=== PATIENT | female | born 1960 | race Caucasian/White ===

== ENCOUNTER 2017-05-31 12:57 | Emergency (ER) | payer MEDICARE, MEDICAID ==
--- NOTE | 2017-05-31 13:20 | UC ---
Throat Pain/Nasal Tonny HPI - HPI Summary HPI Summary: complaint of nasal congestion and cough for approx 1 month not sure if it is her allergies- recently found some black mold in her closet and in bedroom'approx 1 week ago productive cough with green sputum- cough is worse at night pressure in her face and forehaed taking loratidine and mucinex D denies fever and chills treated for sinusitis approx 1.5 months ago with zithromax - History of Current Complaint Stated Complaint: BILATERAL EYE SINUS COUGH THROAT COMPLAINT Time Seen by Provider: 05/31/17 13:13 Hx Obtained From: Patient - Allergies/Home Medications Allergies/Adverse Reactions: Allergies Allergy/AdvReac Type Severity Reaction Status Date / Time Carbamazepine [From Tegretol] Allergy Hives and Verified 05/31/17 13:27 "Lethargic" Penicillins Allergy Hives Verified 05/31/17 13:27 Home Medications: Home Medications Cholecalciferol TAB* [Vitamin D TAB*] 1,000 unit PO DAILY 05/31/17 [History Confirmed 05/31/17] PMH/Surg Hx/FS Hx/Imm Hx Previously Healthy: Yes - seasonal allergies, RA, lupus Endocrine History: Dyslipidemia Cardiovascular History: Deep Vein Thrombosis - Surgical History Surgical History: Yes Surgery Procedure, Year, and Place: Left Shoulder, 2012, [place]; Total Hysterectomy, 2008, [place]; Sinus, 2003, [facility]; Left Knee Arthroscopy, 2001, [place]; C-Sections, 1977 1984 1985;. Colon Polyps, ~1970 - Family History Known Family History: Negative: Cardiac Disease, Hypertension, Diabetes - Social History Alcohol Use: None Substance Use Type: None Smoking Status (MU): Heavy Every Day Tobacco Smoker Type: Cigarettes Amount Used/How Often: 1/2 PPD Length of Time of Smoking/Using Tobacco: 46 Years Have You Smoked in the Last Year: Yes Cessation Counseling: Patient Advised to Stop Review of Systems Constitutional: Negative Skin: Negative Eyes: Negative ENT: Sinus Congestion, Sinus Pain/Tenderness Respiratory: Cough Cardiovascular: Negative Gastrointestinal: Negative Genitourinary: Negative Motor: Negative Neurovascular: Negative Musculoskeletal: Negative Neurological: Negative Psychological: Negative All Other Systems Reviewed And Are Negative: Yes Physical Exam Triage Information Reviewed: Yes Appearance: No Pain Distress, Well-Nourished Vital Signs Reviewed: Yes Eyes: Positive: Conjunctiva Clear ENT: Positive: Pharynx normal, Nasal congestion, Nasal drainage, TMs normal, Other: - frontal and maxillary sinus tenderness Neck: Positive: No Lymphadenopathy Respiratory: Positive: Lungs clear, Normal breath sounds, No respiratory distress, No accessory muscle use Cardiovascular: Positive: RRR, No Murmur, Pulses Normal Abdomen Description: Positive: Nontender, Soft Bowel Sounds: Positive: Present Musculoskeletal: Positive: No Edema Neurological: Positive: Alert Psychological Exam: Normal Skin Exam: Normal Throat Pain/Nasal Course/Dx - Differential Dx/Diagnosis Differential Diagnosis/HQI/PQRI: Sinusitis Provider Diagnoses: sinusitis Discharge - Discharge Plan Condition: Stable Disposition: HOME Patient Education Materials: Sinusitis (ED) Referrals: Naomi Gonsalez PA [Primary Care Provider] - Additional Instructions: Please start antibiotic as directed Increase fluids and rest Take acetaminophen or ibuprofen for fever or pain Please review your discharge instructions. If your symptoms do not improve please call your primary care provider or return to urgent care. Your blood pressure is pre-hypertensive reading. Please contact your primary care provider within 1 day -4 weeks for further evaluation
[2017-05-31 13:27] VITALS: BP 139/77
== END 2017-05-31 13:45 | disposition home or self-care (01) ==
LOC: UCCORT 12:57
DX: J32.9 Chronic sinusitis, unspecified (principal); E78.5 Hyperlipidemia, unspecified; Z86.718 Personal history of other venous thrombosis and embolism; Z88.0 Allergy status to penicillin; F17.210 Nicotine dependence, cigarettes, uncomplicated
CPT/HCPCS: 99212; G0463

== ENCOUNTER 2017-09-08 14:01 | Emergency (ER) | payer MEDICARE, MEDICAID ==
[2017-09-08 14:11] VITALS: BP 124/77
--- NOTE | 2017-09-08 15:19 | UC ---
Throat Pain/Nasal Tonny HPI - HPI Summary HPI Summary: TWO WEEKS OF SINUS PRESSURE AND FACIAL PAIN, NO FEVER. COUGH PRODUCTIVE AND WORSE AT NIGHT. - History of Current Complaint Chief Complaint: UCRespiratory Stated Complaint: SINUSES Time Seen by Provider: 09/08/17 14:58 Hx Obtained From: Patient, Family/Hydrogen Cell Tender Onset/Duration: Gradual Onset, Lasting Weeks, Still Present Severity: Moderate Cough: Productive Associated Signs & Symptoms: Positive: Hoarseness, Sinus Discomfort, Nasal Discharge - Epiglottits Risk Factors Epiglottis Risk Factors: Negative - Allergies/Home Medications Allergies/Adverse Reactions: Allergies Allergy/AdvReac Type Severity Reaction Status Date / Time Carbamazepine [From Tegretol] Allergy Hives and Verified 09/08/17 14:06 "Lethargic" Penicillins Allergy Hives Verified 09/08/17 14:06 Home Medications: Home Medications Cholecalciferol TAB* [Vitamin D TAB*] 1 tab DAILY 09/08/17 [History Confirmed ] Topiramate [Topiramate ER 200 mg cap] 1 cap BID 09/08/17 [History Confirmed 09/14] PMH/Surg Hx/FS Hx/Imm Hx Previously Healthy: Yes - Surgical History Surgical History: Yes Surgery Procedure, Year, and Place: Left Shoulder, 2012, [place]; Total Hysterectomy, 2008, [place]; Sinus, 2003, [facility]; Left Knee Arthroscopy, 2001, [place]; C-Sections, 1977 1984 1985;. Colon Polyps, ~1970 - Family History Known Family History: Negative: Cardiac Disease, Hypertension, Diabetes, Respiratory Disease - Social History Lives: With Family Alcohol Use: Rare Substance Use Type: None Smoking Status (MU): Heavy Every Day Tobacco Smoker Type: Cigarettes Amount Used/How Often: 1/2-1 PPD Length of Time of Smoking/Using Tobacco: 46 Years Have You Smoked in the Last Year: Yes Cessation Counseling: Patient Advised to Stop - PATIENT IN THE PROCESS OF QUITTING - Immunization History Most Recent Influenza Vaccination: none 2017 Review of Systems Constitutional: Negative Skin: Negative Eyes: Negative ENT: Nasal Discharge, Sinus Congestion, Sinus Pain/Tenderness Respiratory: Cough Cardiovascular: Negative Gastrointestinal: Negative Genitourinary: Negative Motor: Negative Neurovascular: Negative Musculoskeletal: Negative Neurological: Negative Psychological: Negative Is Patient Immunocompromised?: No All Other Systems Reviewed And Are Negative: Yes Physical Exam Triage Information Reviewed: Yes Appearance: No Pain Distress, Well-Nourished, Ill-Appearing Vital Signs: Initial Vital Signs Temp 97.9 F 09/08/17 14:08 Pulse 78 09/08/17 14:08 Resp 16 09/08/17 14:08 BP 124/77 09/08/17 14:08 Pulse Ox 98 09/08/17 14:08 Vital Signs Reviewed: Yes Eye Exam: Normal ENT: Positive: Pharynx normal, Nasal congestion, Nasal drainage, TM bulging, TM dull Dental Exam: Normal Neck exam: Normal Neck: Positive: Supple, Nontender, No Lymphadenopathy Respiratory Exam: Other - COUGH Respiratory: Positive: Chest non-tender, Lungs clear, Normal breath sounds, No respiratory distress, No accessory muscle use Cardiovascular Exam: Normal Cardiovascular: Positive: RRR, No Murmur, Pulses Normal Abdominal Exam: Normal Abdomen Description: Positive: Nontender, No Organomegaly Musculoskeletal Exam: Normal Neurological Exam: Normal Psychological Exam: Normal Skin Exam: Normal Throat Pain/Nasal Course/Dx - Differential Dx/Diagnosis Differential Diagnosis/HQI/PQRI: Pharyngitis, Sinusitis Provider Diagnoses: SINUSITIS Discharge - Discharge Plan Condition: Stable Disposition: HOME Prescriptions: Benzonatate CAP* [Tessalon 100 MG CAP*] 100 mg PO TID PRN #15 cap PRN Reason: Cough DOXYcycline CAP(*) [DOXYcycline 100MG CAP(*)] 100 mg PO BID #20 cap Patient Education Materials: Sinusitis (ED) Referrals: Haydee Noriega PA [Primary Care Provider] -
== END 2017-09-08 15:18 | disposition home or self-care (01) ==
LOC: UCCORT 14:01
DX: J32.9 Chronic sinusitis, unspecified (principal); Z88.0 Allergy status to penicillin; Z88.8 Allergy status to other drugs, medicaments and biological substances; F17.210 Nicotine dependence, cigarettes, uncomplicated
CPT/HCPCS: 99212; G0463

== ENCOUNTER 2017-12-25 18:32 | Emergency (ER) | payer MEDICARE, MEDICAID ==
[2017-12-25 19:04] VITALS: BP 139/77
--- NOTE | 2017-12-25 20:42 | ED ---
Throat Pain/Nasal Congestion - HPI Summary HPI Summary: 57 yr old with two weeks of coughing, post nasal drip and frontal sinus pressure. She has been feeling ill for two weeks. She is a smoker and feels she has a sinus infection. She has no other problems. - History of Current Complaint Chief Complaint: UCRespiratory Time Seen by Provider: 12/25/17 20:31 - Allergies/Home Medications Allergies/Adverse Reactions: Allergies Allergy/AdvReac Type Severity Reaction Status Date / Time carbamazepine [From Tegretol] Allergy See Comment Verified 12/25/17 18:55 Penicillins Allergy Hives Verified 12/25/17 18:55 PMH/Surg Hx/FS Hx/Imm Hx Endocrine/Hematology History: Reports: Hx Diabetes Cardiovascular History: Comment Only: Hx Hypertension - hx of HTN; no longer on meds Respiratory History: Reports: Hx Asthma - Surgical History Surgery Procedure, Year, and Place: Left Shoulder, 2012, [place]; Total Hysterectomy, 2008, [place]; Sinus, 2003, [facility]; Left Knee Arthroscopy, 2001, [place]; C-Sections, 1977 1983 1985;. Colon Polyps, ~1970; Left elbow Infectious Disease History: No Infectious Disease History: Denies: Traveled Outside the in Last 30 Days - Family History Known Family History: Negative: Cardiac Disease, Hypertension, Diabetes, Respiratory Disease - Social History Alcohol Use: Occasionally Substance Use Type: Reports: None Smoking Status (MU): Heavy Every Day Tobacco Smoker Type: Cigarettes Amount Used/How Often: 1/2-1 PPD Length of Time of Smoking/Using Tobacco: 46 Years Have You Smoked in the Last Year: Yes Review of Systems Constitutional: Negative Positive: Nasal Discharge, Other - sinus pressure Positive: Cough All Other Systems Reviewed And Are Negative: Yes Physical Exam Triage Information Reviewed: Yes Vital Signs On Initial Exam: Initial Vitals Temp Pulse Resp BP Pulse Ox 98.8 F 81 18 139/77 96 12/25/17 18:58 12/25/17 18:58 12/25/17 18:58 12/25/17 18:58 12/25/17 18:58 Vital Signs Reviewed: Yes Appearance: Positive: Well-Appearing, No Pain Distress Skin: Positive: Warm, Skin Color Reflects Adequate Perfusion Eyes: Positive: EOMI ENT: Positive: Nasal congestion, TMs normal Neck: Positive: Nontender Respiratory/Lung Sounds: Positive: Clear to Auscultation, Breath Sounds Present Cardiovascular: Positive: RRR. Negative: Murmur Abdomen Description: Positive: Nontender Musculoskeletal: Positive: Strength/ROM Intact Neurological: Positive: Sensory/Motor Intact, Alert, Oriented to Person Place, Time, CN Intact II-III Psychiatric: Positive: Normal - Karlene Coma Scale Best Eye Response: 4 - Spontaneous Best Motor Response: 6 - Obeys Commands Best Verbal Response: 5 - Oriented Coma Scale Total: 15 Diagnostics - Vital Signs Vital Signs Temp Pulse Resp BP Pulse Ox 12/25/17 18:58 98.8 F 81 18 139/77 96 - Laboratory Lab Statement: Any lab studies that have been ordered have been reviewed, and results considered in the medical decision making process. EENT Course/Dx - Diagnoses Provider Diagnoses: Sinusitis Discharge - Discharge Plan Condition: Good Disposition: HOME Prescriptions: Doxycycline Monohydrate 100 mg PO BID #20 capsule Patient Education Materials: Sinusitis (ED), Hypertension (ED) Forms: *Work Release Referrals: Haydee Salvador MD [Primary Care Provider] - 2 Days
== END 2017-12-25 20:49 | disposition home or self-care (01) ==
LOC: UCCORT 18:32
DX: J32.9 Chronic sinusitis, unspecified (principal); F17.210 Nicotine dependence, cigarettes, uncomplicated
CPT/HCPCS: 99212; G0463

== ENCOUNTER 2018-04-15 11:52 | Emergency (ER) | payer MEDICARE, MEDICAID ==
[2018-04-15 12:18] VITALS: BP 143/80
--- NOTE | 2018-04-15 12:30 | UC ---
Hip/Pelvis Pain - HPI Summary HPI Summary: Patient recently changed jobs and is working at the [employer] in in [facility]--after a shift she has leg pain , fatiue and weakness----she is also having pain that radiates from left SI Joint through buttock, knee and sometimes in to toe - History Of Current Complaint Hx Obtained From: Patient Hx Last Menstrual Period: done ?: No Mechanism Of Injury: none Onset/Duration: Sudden Onset, Lasting Weeks, Still Present Timing: Constant Pain Intensity: 7 Pain Scale Used: 0-10 Numeric Location: Diffuse Character Of Pain: Aching, Throbbing, Stiffness Aggravating Factor(s): Movement Alleviating Factor(s): Other - flexeril did help last night Associated Signs And Symptoms: Positive: Negative <Bianca Hunt - Last Filed: 04/15/18 12:37> <David Rivas - Last Filed: 04/15/18 14:19> - History Of Current Complaint Chief Complaint: UCBackPain Stated Complaint: LEFT LEG/RIGHT KNEE COMPLAINT Time Seen by Provider: 04/15/18 12:16 - Allergies/Home Medications Allergies/Adverse Reactions: Allergies Allergy/AdvReac Type Severity Reaction Status Date / Time carbamazepine [From Tegretol] Allergy See Comment Verified 04/15/18 12:09 Penicillins Allergy Hives Verified 04/15/18 12:09 PMH/Surg Hx/FS Hx/Imm Hx Previously Healthy: No - arthritis, Lupus Endocrine History: Dyslipidemia Neurological History: Seizures - Surgical History Surgical History: Yes Surgery Procedure, Year, and Place: Left Shoulder, 2012, [place]; Total Hysterectomy, 2008, [place]; Sinus, 2003, [facility]; Left Knee Arthroscopy, 2001, [place]; C-Sections, 1977 1983 1985;. Colon Polyps, ~1970; Left elbow - Family History Known Family History: Negative: Cardiac Disease, Hypertension, Diabetes, Respiratory Disease - Social History Occupation: Employed Part-time Lives: With Family Alcohol Use: Occasionally Substance Use Type: None Smoking Status (MU): Heavy Every Day Tobacco Smoker Type: Cigarettes Amount Used/How Often: 1/2-1 PPD Length of Time of Smoking/Using Tobacco: 46 Years Have You Smoked in the Last Year: Yes - Immunization History Most Recent Influenza Vaccination: none 2016 <Bianca Hunt - Last Filed: 04/15/18 12:37> Review of Systems Constitutional: Negative Skin: Negative Eyes: Negative ENT: Negative Respiratory: Negative Cardiovascular: Negative Gastrointestinal: Negative Genitourinary: Negative Motor: Negative Neurovascular: Negative Musculoskeletal: Negative - si joint, buttock thigh to knee ( and sometimes pain in her foot), Arthralgia Neurological: Negative Psychological: Negative Is Patient Immunocompromised?: No All Other Systems Reviewed And Are Negative: Yes <Bianca Hunt - Last Filed: 04/15/18 12:37> Physical Exam Triage Information Reviewed: Yes Appearance: Well-Appearing, No Pain Distress, Well-Nourished Vital Signs: Initial Vital Signs Temp 98.2 F 04/15/18 12:11 Pulse 89 04/15/18 12:11 Resp 18 04/15/18 12:11 BP 143/80 04/15/18 12:11 Pulse Ox 96 04/15/18 12:11 Vital Signs Reviewed: Yes Eye Exam: Normal Eyes: Positive: Conjunctiva Clear ENT Exam: Normal ENT: Positive: Normal ENT inspection, Hearing grossly normal. Negative: Trismus , Muffled voice, Hoarse voice Dental Exam: Normal Neck exam: Normal Neck: Positive: Supple, Nontender Respiratory Exam: Normal Respiratory: Positive: Chest non-tender, No respiratory distress, No accessory muscle use Cardiovascular Exam: Normal Cardiovascular: Positive: RRR, Pulses Normal, Brisk Capillary Refill Musculoskeletal Exam: Normal Musculoskeletal: Positive: Strength Intact, ROM Intact, No Edema Neurological Exam: Normal Neurological: Positive: Alert, Muscle Tone Normal Psychological Exam: Normal Skin Exam: Normal <Bianca Hunt Last Filed: 04/15/18 12:37> Vital Signs: Initial Vital Signs Temp 98.2 F 04/15/18 12:11 Pulse 89 04/15/18 12:11 Resp 18 04/15/18 12:11 BP 143/80 04/15/18 12:11 Pulse Ox 96 04/15/18 12:11 <David Rivas - Last Filed: 04/15/18 14:19> Hip Injury Course/Dx - Course Course Of Treatment: flexeril, mobic, lidoderm (may substitute salon pas 4% lidocaine), low back exercise follow with pcp this week - Differential Dx/Diagnosis Provider Diagnoses: elevated blood pressure without history of hypertension, acute exacerbation of chronic left sciatic pain <Bianca Hunt Filed: 04/15/18 12:37> Discharge - Sign-Out/Discharge Documenting (check all that apply): Discharge/Admit/Transfer - Billing Disposition and Condition Condition: STABLE Disposition: Home <Bianca Hunt - Last Filed: 04/15/18 12:37> - Billing Disposition and Condition Condition: STABLE Disposition: Home <David Rivas - Last Filed: 04/15/18 14:19> - Discharge Plan Condition: Stable Disposition: HOME Prescriptions: Cyclobenzaprine TAB* [Flexeril 10 MG TAB*] 10 mg PO TID PRN #21 tab PRN Reason: pain Lidocaine PATCH 5%* [Lidoderm 5% Patch*] 1 patch TRANSDERM DAILY PRN #30 patch PRN Reason: Pain Meloxicam(NF) [Mobic(NF)] 7.5 mg PO BID PRN #30 tab PRN Reason: pain Patient Education Materials: Sciatica (ED), Hypertension (ED), Lower Back Exercises (ED) Forms: *Work Release Referrals: Haydee Salvador MD [Primary Care Provider] - 1 Week Additional Instructions: Per institutional requirements, I have reviewed the chart, however, I was not consulted specifically or made aware of this patient by the above midlevel provider. I did not personally evaluate, interact with , or disposition this patient.
== END 2018-04-15 12:43 | disposition home or self-care (01) ==
LOC: UCCORT 11:52
DX: R03.0 Elevated blood-pressure reading, without diagnosis of hypertension (principal); M54.32 Sciatica, left side; G89.29 Other chronic pain; Z88.0 Allergy status to penicillin; Z88.8 Allergy status to other drugs, medicaments and biological substances; F17.210 Nicotine dependence, cigarettes, uncomplicated
CPT/HCPCS: 99212; G0463